=== PATIENT | male | born 1980 | race American Indian/Alaskan Native ===

== ENCOUNTER → 2025-07-18 | Outpatient (BNVA) | payer OTHER, SELFPAY | END | disposition home or self-care (01) | PROVIDERS: PCP Physician Assistant; Referring Provider Physician Assistant; Visit Provider Urology | DX: Z30.2 Encounter for sterilization (principal); E11.9 Type 2 diabetes mellitus without complications; I25.10 Atherosclerotic heart disease of native coronary artery without angina pectoris; E66.9 Obesity, unspecified; Z71.3 Dietary counseling and surveillance; Z68.33 Body mass index [BMI] 33.0-33.9, adult | CPT/HCPCS: 81003; 99212; G0463 ==

== ENCOUNTER 2025-08-28 07:50 | Day surgery (SDC) | payer BC, SELFPAY ==
--- NOTE | 2025-08-26 14:28 | SUR.PREOP ---
Pt will get labs and EKG on arrival, he stopped plavix and aspirin on 08/21/25
[2025-08-28] VITALS (9 sets, daily range): BP systolic 106–140; BP diastolic 70–93; PULSE 54–70; RESP 12–20; TEMP 36.1–36.2; O2SAT 96–100; BMI 33.6
--- NOTE | 2025-08-28 09:00 | CHAP ---
Visited with patient and talked with him. He did not want prayer, but thanked me for coming.
[2025-08-28] MEDS: RINGERS LACTATED 1000 ML 1,000 ML 20 ML IV (09:12)
--- NOTE | 2025-08-28 12:30 | SUR.PHASEI ---
pt received from OR in recovery bay 4. pt obtunded, breathing unlabored on nc 5l. v/s stable. pt dressing to scrotal area cdi. report received from Dr. Diaz and Samm SHAH.
--- NOTE | 2025-08-28 13:16 | SUR.PHASEII ---
pt able to tolerate oral fluids without difficulty swallowing or nausea/vomiting.
--- NOTE | 2025-08-28 13:47 | PD.SUROPNT ---
Date of Procedure 08/28/25 Pre Op Diagnosis Elective sterilization Post Op Diagnosis Same Procedure Bilateral vasectomy Findings Bilateral breast no pathology Procedure Description Indication for procedure this is a 45-year-old gentleman he he has female partner and has 4 children he desired bilateral vasectomy procedure and complications were discussed with the patient in great detail informed consent is obtained he understood very well there is no guarantee for permanent sterilization literature regarding bilateral vasectomy was provided to the patient This is [id number] male came for bilateral vasectomy procedure and complications were discussed with patient in great detail informed consent was obtained patient understood very well there is no warranty for permanent sterilization. Procedure patient was brought to the operating room in a satisfactory condition after appropriate premedication was put on the operating table in a supine position general anesthesia was given uneventfully parts were prepped and draped in a usual sterile fashion. Next the right vas deferens was palpated between 2 fingers and a thumb 2% lidocaine with quarter percent Marcaine was instilled appropriately vertical skin incision was made proper hemostasis was secured. Next the vas deferens was brought into the incision it was from its various fascial coverings between 2 silver clips centimeter of the vas deferens was excised. The lumen of the vas deferens was diathermized with coagulation diathermy distal end of the vas deferens was buried between various fascial layers. Skin was approximated with 3-0 chromic. Similar procedure was repeated on the opposite side. Next this sterile dressings were applied. Pressure bandage was given Patient having tolerated the procedure well and was sent to recovery room in a satisfactory condition to be discharged home with full postoperative instructions were verbally as well as in writing to be followed in urology office in 12 weeks' time. Anesthesia GETA Pathology / specimen None Estimated Blood Loss 1 Condition Stable Disposition PACU Surgeon Louis Fish MD Surgical Staff Operation Date: 08/28/25 11:15 Case Staff Anesthesiologist: Usman Diaz
--- NOTE | 2025-08-28 14:15 | SUR.PHASEII ---
pt awake and alert, breathing unlabored on room air. v/s stable. pt dressing to scrotal area cdi. pt able to ambulate to wheelchair with steady gait. d/c instructions given with Fariba over the phone (child presence) and pt in room, all questions ansered. pt d/c via wheelchair with all belongings.
== END 2025-08-28 14:15 | disposition home or self-care (01) ==
PROVIDERS: PCP Physician Assistant; Referring Provider Urology; Visit Provider Urology
PROC: (CPT 55250; principal; 2025-08-28 11:00)
DX: Z30.2 Encounter for sterilization (principal)
CPT/HCPCS: 55250; 80053; A4649; J0131; J0461; J1100; J1885; J2250; J2405; J2704; J3010; J3490; J7120; A9270